=== PATIENT | female | born 1985 | race Caucasian/White ===

== ENCOUNTER → 2016-03-03 | Outpatient (CLI) | payer BC, OTHER ==
[~2016-03-03] MED LIST: OXYC-57 PO; PRENTAB65 PO
[2016-03-03 17:34] LABS: BASO % 0.2 %; BASO ABS # 0.02 K/uL (0-0.2); COMPLETE YES; EOS % 0.4 %; HEMATOCRIT 40.3 % (37-47); IG% 0.1 %; LYMPH % 24.2 %; LYMPH ABS # 2.29 K/uL (1.2-3.4); MEAN CORPUSCULAR HEMOGLOBIN 32.8 pg (25-34); MEAN CORPUSCULAR HGB CONC 34.5 g/dl (32-36); MEAN PLATELET VOLUME 11.1 fL (7.4-10.4); MONO % 4.7 %; NEUT % 70.4 %; PLATELET COUNT 274 K/uL (130-400); RED BLOOD COUNT 4.24 M/uL (4.2-5.4); WHITE BLOOD COUNT 9.45 K/uL (4.8-10.8)
[2016-03-03 17:48] LABS: URINE APPEARANCE CLOUDY (CLEAR); URINE BILIRUBIN NEG (NEG); URINE COLOR YELLOW; URINE EPITHELIAL CELL AUTO >30 /lpf (0-5); URINE NITRITE NEG (NEG); URINE PH 5.5 (4.5-7.5); URINE SPECIFIC GRAVITY 1.019 (1.000-1.030); UROBILINOGEN NEG (NEG)
[2016-03-03 17:57] LABS: MANUAL MICROSCOPIC REQUIRED? NO; REVIEW REQ? NO
[2016-03-08 03:24] LABS: CHLAMYDIA TRACH RNA*** NOT DETECTED (NOT DETECTED); GC (NEIS GONORRHOEAE)RNA** NOT DETECTED (NOT DETECTED)
== END | disposition home or self-care (01) ==
LOC: C.LAB1850 16:13
PROVIDERS: ATTEND Obstetrics & Gynecology
DX: O09.211 Supervision of pregnancy with history of pre-term labor, first trimester (principal)

== ENCOUNTER → 2016-04-04 | Outpatient (CLI) | payer BC, OTHER ==
[~2016-04-04] MED LIST changes: +OPTIRAY 320 IV PRN
--- NOTE | 2016-04-04 16:13 | DIAGNOSTIC IMAGING REPORT ---
CT ANGIOGRAM OF THE CHEST CLINICAL HISTORY: Shortness of breath, hemachromatosis, . COMPARISON STUDY: No previous studies for comparison. TECHNIQUE: Following the IV administration of 90 mL of Optiray-320, CT angiogram of the thorax was performed from the thoracic inlet to the lung bases utilizing the pulmonary embolus protocol. Images are reviewed in the axial, sagittal, and coronal planes. IV contrast was administered without complication. MIP imaging was performed. CT DOSE: 298.21 mGy.cm FINDINGS: No pathologically enlarged axillary mediastinal or hilar lymph nodes were visualized. There was no evidence of thoracic aortic dilatation. There were no pulmonary artery filling defects to indicate acute pulmonary embolism. No pleural effusions are visualized. Dependent groundglass attenuation is felt to be atelectatic. There is no focal pulmonary consolidation. There is a 3 mm right middle lobe pulmonary nodule as visualized in image #[id number]. Given the age of the patient, in the absence of risk factors for malignancy, this finding is of doubtful clinical significance. IMPRESSION: 1. No CT evidence of acute pulmonary embolism 2. No evidence of focal pulmonary consolidation 3. 3 mm right middle lobe pulmonary nodule Electronically signed by: Brandan Crowe M.D. 04/04/2016 4:11 PM Dictated Date/Time: 04/04/2016 4:07 PM
== END | disposition home or self-care (01) ==
LOC: C.CTS 15:31
PROVIDERS: ATTEND Internal Medicine Hematology & Oncology
DX: E83.119 Hemochromatosis, unspecified (principal)

== ENCOUNTER → 2016-04-17 | Outpatient (CLI) | payer BC, OTHER ==
[~2016-04-17] MED LIST changes: -OPTIRAY 320 IV PRN
[2016-04-17 14:02] LABS: GTGD 50 Grams
== END | disposition home or self-care (01) ==
LOC: C.LAB1850 09:52
PROVIDERS: ATTEND Obstetrics & Gynecology
DX: O09.212 Supervision of pregnancy with history of pre-term labor, second trimester (principal); Z3A.00 Weeks of gestation of pregnancy not specified

== ENCOUNTER 2016-06-16 18:14 | Outpatient (CLI) | payer BC, OTHER ==
[~2016-06-16] VITALS: Ht 160 cm; Wt 95.5 kg
[~2016-06-16 18:14] MED LIST changes: -OXYC-57 PO
[2016-06-16 19:49] VITALS: Ht 160 cm; Wt 95.5 kg
[2016-09-04] MEDS ORDERED: OXYC-57 PO (07:22)
== END 2016-06-16 20:00 | disposition home or self-care (01) ==
LOC: C.LD 18:14 → C.OPB 18:14
PROVIDERS: ATTEND Obstetrics & Gynecology
DX: O26.892 Other specified pregnancy related conditions, second trimester (principal); R10.30 Lower abdominal pain, unspecified; Z3A.25 25 weeks gestation of pregnancy

== ENCOUNTER → 2016-07-12 | Outpatient (CLI) | payer BC, OTHER ==
[~2016-07-12] MED LIST changes: +OXYC-57 PO
[2016-07-12 15:03] LABS: HEMATOCRIT 38.9 % (37-47)
[2016-07-12 19:21] LABS: GTGD 50 Grams
== END | disposition home or self-care (01) ==
LOC: C.LAB1850 12:04
PROVIDERS: ATTEND Obstetrics & Gynecology
DX: O09.893 Supervision of other high risk pregnancies, third trimester (principal)

== ENCOUNTER → 2016-07-12 | Outpatient (CLI) | payer BC, OTHER ==
[2016-07-12 15:15] LABS: URINE APPEARANCE CLOUDY (CLEAR); URINE BILIRUBIN NEG (NEG); URINE COLOR DK YELLOW; URINE EPITHELIAL CELL AUTO >30 /lpf (0-5); URINE NITRITE NEG (NEG); URINE PH 6.5 (4.5-7.5); URINE SPECIFIC GRAVITY 1.024 (1.000-1.030); UROBILINOGEN NEG (NEG)
[2016-07-12 15:19] LABS: MANUAL MICROSCOPIC REQUIRED? NO; REVIEW REQ? YES
== END | disposition home or self-care (01) ==
LOC: C.LABSPEC 14:04
PROVIDERS: ATTEND Obstetrics & Gynecology
DX: O09.893 Supervision of other high risk pregnancies, third trimester (principal)

== ENCOUNTER → 2016-09-01 | Outpatient (CLI) | payer BC, OTHER | END | disposition home or self-care (01) | LOC: C.LABSPEC 14:31 | PROVIDERS: ATTEND Obstetrics & Gynecology | DX: O09.213 Supervision of pregnancy with history of pre-term labor, third trimester (principal); Z3A.00 Weeks of gestation of pregnancy not specified ==

== ENCOUNTER 2016-09-02 12:40 | Inpatient (IN) | payer BC, OTHER ==
[~2016-09-02] VITALS: Ht 162.6 cm; Wt 101.4 kg
[~2016-09-02 12:40] MED LIST changes: -OXYC-57 PO
[2016-09-02] MEDS ORDERED: LACTATED RINGER'S 1000ML 1,000 ML IV SCH ×2 (12:42→19:03)
[2016-09-02] MEDS ORDERED: LACTATED RINGER'S 1000ML 1,000 ML IV PRN (12:42)
[2016-09-02] MEDS ORDERED: PENICILLIN G POTASSIUM IV 3 MU in DEXTROSE 5% 100ML 100 ML IV PRN (12:45)
[2016-09-02] MEDS ORDERED: PENICILLIN G POTASSIUM IV 6 MU in DEXTROSE 5% 250ML 250 ML IV ONE (13:00)
[2016-09-02 13:20] VITALS: Ht 162.6 cm; Wt 101.4 kg
[2016-09-02 13:27] LABS: HEMATOCRIT 37.4 % (37-47); MEAN CELL VOLUME 93.7 fL (80-100); MEAN CORPUSCULAR HEMOGLOBIN 30.8 pg (25-34); MEAN CORPUSCULAR HGB CONC 32.9 g/dl (32-36); MEAN PLATELET VOLUME 10.8 fL (7.4-10.4); PLATELET COUNT 281 K/uL (130-400); RED BLOOD COUNT 3.99 M/uL (4.2-5.4); WHITE BLOOD COUNT 8.61 K/uL (4.8-10.8)
[2016-09-02] MEDS ORDERED: LACTATED RINGER'S 1000ML 500 ML IV PRN ×2 (14:56→17:16)
[2016-09-02] MEDS ORDERED: OXYTOCIN 30 UNITS/500ML NSS IV PRN ×2 (15:00→19:15)
[2016-09-02] MEDS ORDERED: BUPIVACAINE 0.25% 30 ML VIAL ONE (16:14)
[2016-09-02] MEDS ORDERED: FENTANYL 2MCG/ML ROPIV 1.25MG/ML 100ML BAG EPI ONE (16:14)
[2016-09-02] MEDS ORDERED: EpHEDrine SULFATE INJ 50 MG/ML AMP ONE (16:14)
[2016-09-02] MEDS ORDERED: FENTANYL CITRATE INJ 50 MCG/1 ML 2 ML VIAL ONE (16:14)
[2016-09-02] MEDS ORDERED: NALOXONE HCL INJ 1 MG in SODIUM CHLORIDE 0.9% 1000ML 1,000 ML IV PRN (17:16)
[2016-09-02] MEDS ORDERED: EpHEDrine SULFATE INJ 50 MG/ML AMP IV PRN (17:30)
[2016-09-02] MEDS ORDERED: NALBUPHINE HCL INJ 10 MG/ML AMP IV PRN (17:30)
[2016-09-02] MEDS ORDERED: FENTANYL 2MCG/ML ROPIV 1.25MG/ML 100ML BAG EPI PRN (17:30)
[2016-09-02] MEDS ORDERED: DiphenhydrAMINE HCL 50 MG/ML VIAL IV PRN (17:30)
[2016-09-02] MEDS ORDERED: NALOXONE HCL INJ 0.4 MG/1 ML VIAL/CARP IV PRN (17:30)
[2016-09-02] MEDS ORDERED: ONDANSETRON INJ 2 MG/ML 2 ML VIAL IV PRN (17:30)
[2016-09-02] MEDS ORDERED: ACETAMINOPHEN 325 MG TAB PO PRN (19:15)
[2016-09-02] MEDS ORDERED: SUPERCREAM 0.870 % 15GM JAR EXT PRN (19:15)
[2016-09-02] MEDS ORDERED: DIPHTHERIA/TETANUS/PERTUSSIS 0.5 ML SYR/VIAL IM. ONE (19:15)
[2016-09-02] MEDS ORDERED: BENZOCAINE 20% AER SPR 82.5 GM CAN EXT PRN (19:15)
[2016-09-02] MEDS ORDERED: HYDROCORTISONE ACETATE 25 MG SUPP PR PRN (19:15)
[2016-09-02] MEDS ORDERED: OXYCODONE/ACETAMINOPHEN 5-325 TAB PO PRN (19:15)
[2016-09-02] MEDS ORDERED: LANOLIN OINT EXT PRN ×2 (19:15)
[2016-09-02] MEDS: DOCUSATE SODIUM 100 MG CAP PO SCH (20:00)
--- NOTE | 2016-09-02 21:19 | Anesthesia Procedure Note ---
Anesthesia Epidural Removal Nt Date & Time Sep 02, 2016 at 21:19 Vital Signs Pain Intensity: 0.0 Notes Mental Status: alert / awake / arousable, participated in evaluation Nausea / Vomiting: adequately controlled Pain: adequately controlled Airway Patency, RR, SpO2: stable & adequate BP & HR: stable & adequate Hydration State: stable & adequate Neuraxial Anesthesia: was administered Anesthetic Complications: no major complications apparent, pt satisfied with anesthetic care Epidural: removed without complications, with tip intact
[2016-09-02 22:20] VITALS: BP 109/68; PULSE 93; TEMP 36.7
[2016-09-03] MEDS: IBUPROFEN 600 MG TAB PO PRN ×3 (03:18→23:22)
[2016-09-03 03:20] VITALS: BP 109/74; PULSE 70; TEMP 36.5
--- NOTE | 2016-09-03 06:00 | DELIVERY SUMMARY ---
DATE OF OPERATION: 09/02/2016 PREOPERATIVE DIAGNOSES: 1. Single ____ intrauterine at 36 and 1/7 weeks. 2. Spontaneous rupture of membranes. 3. Induction of labor. POSTOPERATIVE DIAGNOSES: Same. PROCEDURE: Spontaneous vaginal delivery and repair of second degree lacerations. SURGEON: Leona Valdes MD BID CLERK: None. ESTIMATED BLOOD LOSS: 400 mL. COMPLICATIONS: None. DISPOSITION: Stable, to labor and delivery. DESCRIPTION: Claudia is a 31-year-old G2, P0-1-0-1 who presented at 36 weeks and 1/7 gestational age with a complaint of rupture of membranes and lower abdominal pain. She was found to have a diagnosis of PPROM with unchanged cervix compared to 24 hours prior. Her cervix ultimately did not continue to change and she needed to be induced with Pitocin. She received an epidural for pain management. I was called to the room when the patient was found to be completely dilated with an urge to push. I prepped her for delivery and over several pushes the patient brought the head to ____ and then delivery followed by the shoulders with no difficulty and the remainder of the thereafter. The infant was placed on the maternal abdomen while the cord was doubly clamped and cut by the father of the baby as the placenta delivered spontaneously and was intact with a 3-vessel cord. A second degree perineal laceration was repaired using Vicryl suture in the usual manner. At the completion, ____ was minimal and mother and are in stable condition having tolerated the delivery well. I attest to the content of the Intraoperative Record and any orders documented therein. Any exception s are noted below.
[2016-09-03 06:35] LABS: HEMATOCRIT 30.4 % (37-47)
[2016-09-03 08:25] VITALS: BP 120/76; PULSE 67; TEMP 36.6
[2016-09-03] MEDS: DOCUSATE SODIUM 100 MG CAP PO SCH ×2 (08:26→19:37)
[2016-09-03] MEDS: PRENATAL VITAMIN TAB PO SCH (08:26)
--- NOTE | 2016-09-03 09:28 | Progress Note ---
Subjective Sep 03, 2016. Subjective conversation w/ patient, physical exam Ambulation: ambulating normally Voiding: no voiding problems Passing Gas: Yes Lochia: Moderate Feeding Type: Bottle Feeding Review of Systems Constitutional: No fever, No chills Respiratory: No cough Cardiac: No chest pain Abdomen: No nausea, No vomiting Objective Vital Signs Date Time Temp Pulse Resp B/P (MAP) Pulse Ox O2 Delivery O2 Flow Rate FiO2 09/03/16 03:20 36.5 70 16 109/74 (86) Room Air 09/02/16 22:20 36.7 93 18 109/68 (82) Room Air 09/02/16 22:20 Room Air Physical Exam General Appearance: WELL-APPEARING, NO APPARENT DISTRESS Respiratory/Chest: no respiratory distress, no accessory muscle use Cardiovascular: no edema Abdomen: non tender, soft Fundus: Firm Extremities: no calf tenderness Laboratory Results Last 24 Hours Test 09/02/16 12:52 09/03/16 06:19 White Blood Count 8.61 K/uL Red Blood Count 3.99 M/uL Hemoglobin 12.3 g/dL 10.2 g/dL Hematocrit 37.4 % 30.4 % Mean Corpuscular Volume 93.7 fL Mean Corpuscular Hemoglobin 30.8 pg Mean Corpuscular Hemoglobin Concent 32.9 g/dl RDW Standard Deviation 46.1 fL RDW Coefficient of Variation 13.4 % Platelet Count 281 K/uL Mean Platelet Volume 10.8 fL Assessment and Plan Problem List Medical Problems: (1) Vomiting Status: Acute Post- Day#: 1
[2016-09-03 12:10] VITALS: BP 124/80; PULSE 76; TEMP 36.6
[2016-09-03 15:45] VITALS: BP 107/71; PULSE 69; TEMP 36.7
[2016-09-03 23:25] VITALS: BP 106/62; PULSE 74; TEMP 36.4; O2SAT 97
[2016-09-04] MEDS ORDERED: OXYC-57 PO (07:22)
--- NOTE | 2016-09-04 07:24 | Discharge Instructions ---
Discharge Instructions Date of Service Sep 04, 2016. Admission Reason for Admission: Check Labor Discharge Discharge Diagnosis / Problem: Vaginal delivery Discharge Goals Goal(s): Routine recovery after delivery Activity Recommendations Activity Limitations: per Instructions/Follow-up section . Instructions / Follow-Up Instructions / Follow-Up ACTIVITY RECOMMENDATIONS: * Gradual return to full activity over the next 2-3 weeks. * No lifting - nothing heavier than baby over the next 2-3 weeks. * Do not engage in vigorous exercise, sexual activity or sports until cleared by your physician. * Do not drive or operate any motorized equipment until cleared by your physician. * You may shower/bathe daily. MEDICATIONS: For discomfort or pain, you may use Acetaminophen (Tylenol), Ibuprofen (Advil), or Naproxen (Aleve) following the package directions. For constipation you may use Colace following the package directions. BREAST CARE: If you are not breast feeding: * Wear a supportive bra 24 hours a day for one to two weeks. * Avoid stimulating your breasts and nipples as much as possible during the first few weeks after delivery. * When taking a shower, have the warm water hit your back, not breasts. * When your breasts feel full, apply ice packs. Usually three to four times a day helps ease the discomfort. * Take a mild pain medication (Tylenol / Motrin) when you are uncomfortable. If breast feeding: * Use breast milk to lubricate nipples. Lansinoh cream may be used for sore nipples. You do not need to remove cream prior to breast feeding. If using a different brand of cream, check the label for directions regarding removal of cream prior to nursing. * Wear a supportive bra. * If having problems with breasts or breast feeding, call a programmer analyst consultant or your health care provider. EPISIOTOMY CARE: After delivery, if you have an episiotomy (stitches), the following steps will ease discomfort and aid healing. * For the first 24 hours after delivery, place ice packs next to your episiotomy to help reduce swelling. * After the first 24 hour-period, sitz baths, either portable or in the tub, are suggested. A shower with a shower arm sprayed over the episiotomy may be comforting. * Keisha care should be done after each voiding and bowel movement. Squirt warm water from a plastic bottle over the perineum (region of the body between the anus and urinary opening) and pat dry. * Use Dermoplast to ease discomfort. Shake container. [place] directly over the episiotomy. Place a Tucks on a clean sanitary pad next to your episiotomy. SPECIAL CARE INSTRUCTIONS: When you are discharged from the hospital, it is important for you to follow the instructions listed below: * During the first week at home, you should be able to care for yourself and your baby. In addition, the usual light household activities are encouraged. * Limit your activities to the way you feel. Do not try to clean the house or move furniture. Be sensible. * If you actively engage in sports and have done so up until the time of your delivery, you may resume these activities as soon as you feel able. This may take up to one month or even longer. Use good judgment. * Continue to take your vitamins for at least six weeks after the of your baby. * Your diet need not be limited unless you were on a special diet before your delivery. Breast-feeding mothers need around 2500 calories per day and at least 64-80 ounces of fluid per day (8 to 10 glasses). * You should eat foods from the four major food groups. Crash diets or fad diets are to be avoided. Eating lean meats, fresh fruits and vegetables, low-fat dairy products, high fiber foods and a regular exercise program, will help you get back to your pre- weight without putting your health at risk. * Constipation is sometimes a problem after delivery. Take a mild laxative as needed. If breast feeding, Milk of Magnesia is acceptable to use. You may use a suppository or Fleets enema if no episiotomy. * A daily shower or tub bath is suggested. Be sure to thoroughly and gently dry the perineum. * A bloody vaginal discharge will usually continue until around four weeks post . A small amount of bleeding may continue for as long as six weeks. Vaginal discharge changes from the bright red bleeding after delivery to pink then brownish and finally yellowish-pink before becoming white and disappearing. * Bleeding may increase with activity. Your first period may come in 4-8 weeks. If you are breast feeding, your period may be delayed even longer. * [place] (sex) can begin whenever both you and your partner feel comfortable and do not have any form of genital infection. It is recommended that you wait at least six weeks for internal and external healing to occur. If you have questions, please talk to your health care practitioner. A condom should be used to prevent infection and . * Foreplay, gentle intercourse and lubrication is very important the first several times to prevent pain. A water-based lubricant such as K-Y jelly or Astroglide may be used. * If you have RH negative blood and your baby is RH positive, you will receive RHOGAM by injection prior to discharge. The nurse will give you a card to keep with you that has the date and place that you received RHOGAM after delivery. * During your care, you had a Rubella screen done to check for the presence of rubella antibodies in your blood. If your test was negative, you will receive a Rubella vaccine prior to discharge. This vaccine may cause a fever, soreness at the injection site and flu-like symptoms. If these symptoms persist, notify your health care practitioner. is not advised for one month after a Rubella vaccine. * Verbalizes understanding of car seat law as reviewed with patient nursing. * Car Seat hand-out given and reviewed with patient by nursing. * Shaken baby information reviewed with patient by nursing. Call you doctor if: * Heavy bleeding (saturating several pads an hour) or passing clots the size of your fist. * A fever >101 degrees F (38.3 degrees C) on two occasions four hours apart and /or chills. * Unusual pain in the pelvic or vaginal areas. * "Baby Blues" lasting longer than two weeks. If you have any questions or concerns, call your health care practitioner at . FOLLOW UP VISIT: * Please call the office at to schedule a 6 week examination. It is important you keep this appointment. It is important for you to make arrangements for either yearly or twice yearly check-ups thereafter. Current Hospital Diet Patient's current hospital diet: Regular OB Diet Discharge Diet Recommended Diet: Regular Diet Pending Studies Studies pending at discharge: no Medical Emergencies . Who to Call and When: Medical Emergencies: If at any time you feel your situation is an emergency, please call 911 immediately. . Non-Emergent Contact Non-Emergency issues call your: Primary Care Provider . . "Provider Documentation" section prepared by Leona Valdes. . VTE Core Measure Inpt VTE Proph given/why not?: Treatment not indicated
--- NOTE | 2016-09-04 07:36 | OB/GYN Progress Note ---
BUILDING SPECIALIST Progress Note Date of Service Sep 04, 2016. Subjective conversation w/ patient, physical exam, chart review Ambulation: ambulating normally Voiding: no voiding problems Passing Gas: Yes Diet Tolerance: Regular Diet Lochia: Small Feeding Type: Bottle Feeding Pain: No pain reported Review of Systems Constitutional: No fever Respiratory: No shortness of breath Cardiac: No chest pain Breast: No problem reported Abdomen: No nausea, No vomiting Female : No dysuria Objective Vital Signs Date Time Temp Pulse Resp B/P (MAP) Pulse Ox O2 Delivery O2 Flow Rate FiO2 09/03/16 23:25 Room Air 09/03/16 23:25 36.4 74 16 106/62 (77) 97 Room Air 09/03/16 15:45 Room Air 09/03/16 15:45 36.7 69 20 107/71 (83) 09/03/16 12:10 36.6 76 20 124/80 (95) 09/03/16 08:25 36.6 67 16 120/76 (91) Physical Exam General Appearance: WELL-APPEARING Respiratory/Chest: lungs clear, normal breath sounds, no respiratory distress Cardiovascular: regular rate, rhythm Abdomen: non tender, soft Fundus: Firm Extremities: non-tender, normal inspection, + swelling (1+ pedal edema) Laboratory Results Last Resulted 09/02/16 12:52 09/03/16 06:19 Medications Current Inpatient Medications Medications (Trade) Dose Ordered Sig/Aquiles Route Start Time Stop Time Status Last Admin Dose Admin Lactated Ringer's 500 ml @ 999 mls/hr Q31M PRN IV 09/02/16 14:56 10/02/16 14:55 Lactated Ringer's 1,000 ml @ 125 mls/hr Q8H IV 09/02/16 19:03 10/02/16 19:02 Oxytocin (Pitocin IV) 30 units UD PRN IV 09/02/16 19:15 10/02/16 19:14 Benzocaine (Dermoplast Aero Spr) 1 appln PRN PRN EXT 09/02/16 19:15 10/02/16 19:14 Cocaine HCl (Supercream 0.870% Cr) BID PRN EXT 09/02/16 19:15 09/16/16 19:14 Hydrocortisone Acetate (Anusol Hc Supp) 25 mg BID PRN OK 09/02/16 19:15 10/02/16 19:14 Lanolin (Lanolin Oint) PRN PRN EXT 09/02/16 19:15 10/02/16 19:14 Prenat Multivit/ Managed Care Specialist/Iron/Folic Ac ( Vitamin Tab) 1 tab DAILY PO 09/03/16 08:00 10/03/16 07:59 09/03/16 08:26 1 TAB Ibuprofen (Motrin Tab) 600 mg Q4H PRN PO 09/02/16 19:15 10/02/16 19:14 09/03/16 23:22 600 MG Acetaminophen (Tylenol Tab) 650 mg Q6H PRN PO 09/02/16 19:15 10/02/16 19:14 Oxycodone/ Acetaminophen (Percocet 5-325mg Tab) 1 tab Q4H PRN PO 09/02/16 19:15 09/16/16 19:14 Docusate Sodium (coLACE CAP) 100 mg BID PO 09/02/16 20:00 10/02/16 19:59 09/03/16 19:37 100 MG Assessment and Plan Post- Day Number: 2 Continue Routine Care: 31yo s/p , now PPD #2. - Blood type A positive. GBS unknown. Rubella immune. - Vital signs reviewed and stable. - Pain controlled with ibuprofen - Mild leg swelling. No tenderness on calf palpation. Ambulating well - Bottle feeding - no problems reported - Hemoglobin pre-delivery 12.3, post-delivery 10.2. Having mild bleeding - Pt ready for discharge today Resident Involvement: Resident Care Provided Care Provided: OB Delivery
[2016-09-04 07:50] VITALS: BP 107/71; PULSE 52; TEMP 36.4
[2016-09-04] MEDS: PRENATAL VITAMIN TAB PO SCH (08:08)
[2016-09-04] MEDS: DOCUSATE SODIUM 100 MG CAP PO SCH (08:08)
[2016-09-04 13:10] VITALS: BP_DIAS 71; PULSE 52; TEMP 36.4
== END 2016-09-04 13:10 | disposition home or self-care (01) | DRG 775 ==
LOC: C.LD 12:40 → C.OPB 12:40 → C.LD 12:44 → C.OPB 12:44 → C.OBG 21:52
PROVIDERS: ADMIT Obstetrics & Gynecology; ATTEND Obstetrics & Gynecology
PROC: 10E0XZZ Delivery of Products of Conception, External Approach (ICD-10-PCS; principal; 2016-09-02)
PROC: 0KQM0ZZ Repair Perineum Muscle, Open Approach (ICD-10-PCS; principal; 2016-09-02)
PROC: 3E033VJ Introduction of Other Hormone into Peripheral Vein, Percutaneous Approach (ICD-10-PCS; principal; 2016-09-02)
DX: O42.913 Preterm premature rupture of membranes, unspecified as to length of time between rupture and onset of labor, third trimester (principal); O70.1 Second degree perineal laceration during delivery; O35.2XX0 Maternal care for (suspected) hereditary disease in fetus, not applicable or unspecified; Z37.0 Single live birth; Z3A.36 36 weeks gestation of pregnancy

== ENCOUNTER 2017-02-06 00:53 | Emergency (ER) | payer BC, OTHER ==
[~2017-02-06] VITALS: Ht 157.5 cm; Wt 86.5 kg
[2017-02-06 00:59] VITALS: TEMP 36.5; Ht 157.5 cm; Wt 86.5 kg
[2017-02-06] MEDS ORDERED: DEXAMETHASONE 4 MG TAB ONE (01:11)
[2017-02-06] MEDS ORDERED: DEXAMETHASONE 1 MG TAB PO ONE (01:15)
[2017-02-06] MEDS ORDERED: RANITIDINE HCL 150 MG TAB PO ONE (01:15)
[2017-02-06] MEDS ORDERED: LXT PO (01:27)
[2017-02-06] MEDS ORDERED: DIPH1TAB87 PO (01:54)
[2017-02-06] MEDS ORDERED: RANI150T3 PO (01:54)
--- NOTE | 2017-02-06 01:56 | EMERGENCY ROOM VISIT NOTE ---
History Report prepared by Jacqueline: Radha Drummond Under the Supervision of: Dr. Mack Gomez M.D. First contact with patient: 01:02 Chief Complaint: ALLERGIC REACTION Stated Complaint: WELTS History of Present Illness The patient is a 31 year old female who presents to the Emergency Room with complaints of a worsening allergic reaction starting an hour ago. The patient states that she woke up and noticed a lump on her back. She reports that it started getting bigger and itchy welts were appearing all over her body. The patient complains of dizziness. The patient denies this ever happening before, taking anything for her symptoms, new detergents, new foods, and new medication. She notes that she took a laxative today. Source of History: patient Onset: an hour ago Position: other (global) Quality: other (itchy) Timing: worsening Note: The patient complains of dizziness. Review of Systems See HPI for pertinent positives and negatives. A total of ten systems were reviewed and were otherwise negative. Past Medical & Surgical Medical Problems: (1) 25 weeks gestation of (2) Abdominal pain complicating (3) Complicated (4) GERD (gastroesophageal reflux disease) (5) Hemochromatosis (6) hemorchromitosis (7) Hodgkin's disease (8) Ovarian cyst, right (9) over reactive bladder (10) Premature rupture of membranes (11) premature rupture of membranes (PPROM) delivered, current hospitalization (12) Threatened miscarriage (13) Threatened miscarriage (14) Urethritis (15) Vaginitis Family History Cancer Diabetes mellitus FHx: seizures Hypertension Social History Smoking Status: Never Smoker Alcohol Use: occasionally Marital Status: Housing Status: lives with significant other Occupation Status: employed Current/Historical Medications Scheduled Prednisone (Prednisone), 3 TAB PO DAILY Ranitidine Hcl (Zantac), 150 MG PO BID Scheduled PRN Diphenhydramine Hcl (Benadryl Allergy), 1 TAB PO QID PRN for Itching Laxative (Laxative), Unknown Dose PO DIRECTED PRN for Constipation Allergies Coded Allergies: No Known Allergies (Unverified , 02/06/17) Physical Exam Vital Signs Date Time Temp Pulse Resp B/P (MAP) Pulse Ox O2 Delivery O2 Flow Rate FiO2 02/06/17 02:16 78 20 128/72 98 02/06/17 01:07 98 Room Air 02/06/17 00:59 36.5 111 20 127/84 100 Room Air Physical Exam GENERAL: Awake, alert, anxious appearing, in no distress HENT: Normocephalic, atraumatic. Oropharynx unremarkable. No oropharyngeal involvement. EYES: Normal conjunctiva. Sclera non-icteric. NECK: Supple. No nuchal rigidity. FROM. No JVD. RESPIRATORY: Clear to auscultation. CARDIAC: Regular rate, normal rhythm. Extremities warm and well perfused. Pulses equal. ABDOMEN: Soft, non-distended. No tenderness to palpation. No rebound or guarding. No masses. RECTAL: Deferred. MUSCULOSKELETAL: Chest examination reveals no tenderness. The back is symmetrical on inspection without obvious abnormality. There is no CVA tenderness to palpation. No joint edema. LOWER EXTREMITIES: Calves are equal size bilaterally and non-tender. No edema. No discoloration. NEURO: Normal sensorium. No sensory or motor deficits noted. SKIN: No jaundice noted. Scattered, raised, blanchable areas of erythema on her arms, torso, and back. Medical Decision & Procedures Medications Administered Medications (Trade) Dose Ordered Sig/Aquiles Route Start Time Stop Time Status Last Admin Dose Admin Dexamethasone (Decadron Tab) 10 mg NOW ONCE PO 02/06/17 01:15 02/06/17 01:16 DC 02/06/17 01:14 2 MG Diphenhydramine HCl (Benadryl Cap) 50 mg NOW ONCE PO 02/06/17 01:15 02/06/17 01:16 DC 02/06/17 01:13 50 MG Ranitidine HCl (zANTac TAB) 150 mg NOW ONCE PO 02/06/17 01:15 02/06/17 01:16 DC 02/06/17 01:13 150 MG Dexamethasone (Decadron Tab) 8 mg STK-MED ONCE .ROUTE 02/06/17 01:11 02/06/17 01:12 DC 02/06/17 01:14 8 MG ED Course 0103: The patient was evaluated in room A3. A complete history and physical exam was performed. 0203: I reevaluated the patient and she is feeling better. Discussed results and discharge instructions: She verbalized understanding and agreement. The patient is ready for discharge. Medical Decision I reviewed the patient's past medical history, medications, and the nursing notes as described above. Differential diagnoses include allergic reaction, atopic reaction. The patient is a 31-year-old woman with a past medical history of hemochromatosis who presents to emergency Department with acute onset of hives in her extremities and torso per hpi. Patient denies any symptoms of shortness of breath, nausea vomiting, abdominal pain or other symptoms that would suggest episode is related to her hemochromatosis therefore no indication for labs at this time. On arrival the patient is anxious appearing but in no acute distress , afebrile stable vital signs. Family patient does have scattered areas of raised erythema that is blanchable consistent with hives. No oral pharyngeal involvement. Clear to auscultation bilaterally. She was given Benadryl, Zantac , dexamethasone with good effect and resolution of symptoms. Findings and plan for follow-up reviewed with patient. Patient agreeable and d/c'd per discharge instructions. Medication Reconcilliation Current Medication List: was personally reviewed by me Blood Pressure Screening Patient's blood pressure: Normal blood pressure Blood pressure disposition: Did not require urgent referral Impression Primary Impression: Allergic reaction Scribe Attestation The scribe's documentation has been prepared under my direction and personally reviewed by me in its entirety. I confirm that the note above accurately reflects all work, treatment, procedures, and medical decision making performed by me. Departure Information Dispostion Home / Self-Care Prescriptions Prednisone (Prednisone) 20 Mg Tab 3 TAB PO DAILY for 5 Days, #15 TAB FOR 4 DAYS Prov: Mack Gomez M.D. 02/06/17 Diphenhydramine Hcl (BENADRYL ALLERGY) 25 Mg Tab 1 TAB PO QID Y for Itching, #14 TABS Prov: Mack Gomez M.D. 02/06/17 Ranitidine Hcl (ZANTAC) 150 Mg Tab 150 MG PO BID for 7 Days, #14 TAB Prov: Mack Gomez M.D. 02/06/17 Referrals Arian Salazar M.D. (PCP) Forms HOME CARE DOCUMENTATION FORM, IMPORTANT VISIT INFORMATION Patient Instructions ED Allergic Reaction General Other, ED Hives , [facility] Additional Instructions Please follow up with your primary care physician tomorrow for re-evaluation. You likely had and an allergic reaction to an unidentified environmental exposure. Otherwise, your exam did not show signs of an emergent condition at this time. Benadryl and Zantac as directed. If symptoms return then you may also take prednisone as directed. Return to the emergency department for worsening symptoms as described in the accompanying instructions.
[2017-02-06] MEDS ORDERED: PRED20TA PO (02:07)
[2017-02-06 02:16] VITALS: BP 128/72; PULSE 78; O2SAT 98
[2017-08-04] MEDS ORDERED: LEVO50TA6 PO (13:25)
== END 2017-02-06 02:18 | disposition home or self-care (01) ==
LOC: C.EDB 00:54 → C.EDA 02:18
DX: T78.40XA Allergy, unspecified, initial encounter (principal); X58.XXXA Exposure to other specified factors, initial encounter; K21.9 Gastro-esophageal reflux disease without esophagitis; N83.201 Unspecified ovarian cyst, right side; Z85.71 Personal history of Hodgkin lymphoma; Z79.899 Other long term (current) drug therapy; Z80.9 Family history of malignant neoplasm, unspecified; Z83.3 Family history of diabetes mellitus; Z82.49 Family history of ischemic heart disease and other diseases of the circulatory system; Z82.0 Family history of epilepsy and other diseases of the nervous system

== ENCOUNTER → 2017-06-13 | Outpatient (CLI) | payer OTHER ==
[~2017-06-13] MED LIST changes: +DIPH1TAB87 PO; +LXT PO; -PRENTAB65 PO
== END | disposition home or self-care (01) ==
LOC: C.LAB1850 12:19
PROVIDERS: ATTEND Physician Assistant
DX: N91.2 Amenorrhea, unspecified (principal)

== ENCOUNTER → 2017-06-26 | Outpatient (CLI) | payer OTHER | END | disposition home or self-care (01) | LOC: C.LABSPEC 13:25 | PROVIDERS: ATTEND Obstetrics & Gynecology | DX: Z34.81 Encounter for supervision of other normal pregnancy, first trimester (principal) ==

== ENCOUNTER → 2017-09-07 | Outpatient (CLI) | payer OTHER ==
[~2017-09-07] MED LIST changes: -DIPH1TAB87 PO; +LEVO50TA6 PO; -LXT PO
== END | disposition home or self-care (01) ==
LOC: C.LAB1850 16:09
PROVIDERS: ATTEND Internal Medicine Endocrinology, Diabetes & Metabolism
DX: E03.9 Hypothyroidism, unspecified (principal)

== ENCOUNTER 2018-02-05 20:04 | Inpatient (IN) ==
[2018-02-05] MEDS ORDERED: LACTATED RINGER'S 1,000 ML IV PRN (20:36)
[2018-02-05] MEDS ORDERED: LACTATED RINGER'S 1,000 ML IV SCH (20:45)
[2018-02-05 21:04] LABS: Hematocrit (blood only) 38.6 % (37-47); Mean Corpuscular Volume 93.7 fL (80-100); Mean Platelet Volume 10.9 fL (7.4-10.4); Platelet Count 307 K/uL (130-400); RDW Coefficient of Variation 13.5 % (11.5-14.5); RDW Standard Deviation 46.3 fL (36.4-46.3); Red Blood Count 4.12 M/uL (4.2-5.4); White Blood Count 12.65 K/uL (4.8-10.8)
[2018-02-05 21:22] LABS: Mean Corpuscular Hgb Conc 33.7 g/dL (32-36)
[2018-02-05] MEDS ORDERED: ACETAMINOPHEN 325 MG TAB PO PRN (21:41)
[2018-02-05] MEDS ORDERED: HYDROCORTISONE ACETATE 25 MG SUPP PR PRN (21:41)
[2018-02-05] MEDS ORDERED: SUPERCREAM 0.870% 15 GM JAR EXT PRN (21:41)
[2018-02-05] MEDS ORDERED: DIPHTHERIA/TETANUS/PERTUSSIS 0.5 ML SYR/VIAL IM ONE (21:41)
[2018-02-05] MEDS ORDERED: BENZOCAINE 20% AER SPR 82.5 GM CAN EXT PRN (21:41)
[2018-02-05] MEDS ORDERED: OXYTOCIN 30 UNITS/500 ML BAG IV PRN (21:41)
[2018-02-05] MEDS ORDERED: IBUPROFEN 600 MG TAB PO ONE (21:49)
[2018-02-06] MEDS: IBUPROFEN 600 MG TAB PO PRN ×3 (04:17→20:18)
--- NOTE | 2018-02-06 06:50 | Obstetrical Progress Note ---
Date of Service <Cristhian Nielsen DO - Last Filed: 02/06/18 06:50> February 06, 2018 Assessment & Plan <Cristhian Nielsen DO - Last Filed: 02/06/18 06:50> (1) Spontaneous vaginal delivery: continue routine post- care Subjective <Cristhian Nielsen DO - Last Filed: 02/06/18 06:50> Ambulation: ambulating normally Voiding: no voiding problems Diet Tolerance:: regular diet Lochia:: Small Feeding Type:: bottle feeding Claudia is doing well this morning, no acute complaints, no fever, chills, shortness of breath, chest pain, nausea, vomiting. Physical Exam <Cristhian Nielsen DO - Last Filed: 02/06/18 06:50> Vital Signs (Past 24 Hours) Last Vital Signs Temp 36.5 C 02/06/18 04:15 Pulse 68 02/06/18 04:15 Resp 18 02/06/18 04:15 BP 112/64 02/06/18 04:15 Constitutional WD/WN, vitals as above cooperative Eyes + anicteric sclerae Neck normal visual inspection Respiratory normal respiratory effort, lungs clear to auscultation Cardiovascular Rate/Rhythm: regular rate and regular rhythm Heart Sounds: normal S1 and normal S2 Gastrointestinal (Abdomen) fundus firm 2cm below umbilicus Skin no rashes, warm and dry Neurologic moves all extremities and awake Psychiatric A+Ox3, euthymic affect Results & Data <Cristhian Nielsen DO - Last Filed: 02/06/18 06:50> Laboratory Results Laboratory Results - last 24 hr 02/05/18 20:55 WBC 12.65 H RBC 4.12 L Hgb 13.0 Hct 38.6 MCV 93.7 MCH 31.6 MCHC 33.7 RDW Std Deviation 46.3 RDW Coeff of Nena 13.5 Plt Count 307 MPV 10.9 H Medications Administered Benzocaine (Dermoplast Pain Relieving [place]) 1 appln EXT PRN PRN PRN Reason: Perineal Discomfort Stop: 03/07/18 21:40 Last Admin: 02/06/18 04:16 Dose: 1 appln Lactated Ringer's (Lr) 1,000 mls @ 999 mls/hr IV .Q1H1M PRN PRN Reason: (Pre-Anesthesia) Stop: 03/07/18 20:35 Last Admin: 02/05/18 20:54 Dose: 999 mls/hr Oxytocin (Pitocin) 30 units in 500 mls @ 333.333 mls/hr IV .Q1H30M PRN; Protocol PRN Reason: BLEEDING CONTROL Stop: 03/07/18 21:40 Last Admin: 02/05/18 21:25 Dose: 59.94 units/hr, 999 mls/hr Ibuprofen (Motrin) 600 mg PO Q4H PRN PRN Reason: Pain/MURILLO/Cramping/Fever Stop: 03/07/18 21:40 Last Admin: 02/06/18 04:17 Dose: 600 mg <Viraj El MD - Last Filed: 02/06/18 08:13> Co-Signing Physician Notes Patient seen and evaluated and agree with the above findings, assessment and plan.
[2018-02-06] MEDS ORDERED: PRENATAL VITAMIN 1 TAB PO SCH (09:00)
[2018-02-06] MEDS: DOCUSATE SODIUM 100 MG CAP PO SCH ×2 (09:41→20:18)
[2018-02-06] MEDS: LEVOTHYROXINE SODIUM 75 MCG TABLET PO SCH (11:42)
[2018-02-06] MEDS: MULTIVITAMIN TAB PO SCH (13:01)
[2018-02-06] MEDS: FOLIC ACID 1 MG TAB PO SCH (13:02)
[2018-02-06] MEDS ORDERED: BISACODYL 5 MG TABEC PO SCH (20:00)
--- NOTE | 2018-02-07 06:42 | Obstetrical Progress Note ---
Date of Service <Cristhian Nielsen DO - Last Filed: 02/07/18 06:42> February 07, 2018 Assessment & Plan <Cristhian Nielsen DO - Last Filed: 02/07/18 06:42> (1) Spontaneous vaginal delivery: continue routine post- care Subjective <Cristhian Nielsen DO - Last Filed: 02/07/18 06:42> Ambulation: ambulating normally Voiding: no voiding problems Diet Tolerance:: regular diet Lochia:: Small Feeding Type:: bottle feeding Claudia is doing well this morning, no acute events overnight, denies chest pain , shortness of breath, fever, chills, nausea, vomiting. Physical Exam <Cristhian Nielsen DO - Last Filed: 02/07/18 06:42> Vital Signs (Past 24 Hours) Last Vital Signs Temp 36.5 C 02/07/18 00:00 Pulse 70 02/07/18 00:00 Resp 18 02/07/18 00:00 BP 121/75 02/07/18 00:00 Pulse Ox 97 02/06/18 12:56 Constitutional WD/WN, vitals as above cooperative Eyes + anicteric sclerae Neck normal visual inspection Respiratory normal respiratory effort, lungs clear to auscultation Cardiovascular Rate/Rhythm: regular rate and regular rhythm Heart Sounds: normal S1 and normal S2 Skin no rashes, warm and dry Neurologic moves all extremities and awake Psychiatric A+Ox3, euthymic affect Results & Data <Cristhian Nielsen DO - Last Filed: 02/07/18 06:42> Medications Administered Benzocaine (Dermoplast Pain Relieving [place]) 1 appln EXT PRN PRN PRN Reason: Perineal Discomfort Stop: 03/07/18 21:40 Last Admin: 02/06/18 04:16 Dose: 1 appln Docusate Sodium (Colace) 100 mg PO BID [facility] Stop: 03/08/18 08:59 Last Admin: 02/06/18 20:18 Dose: 100 mg Admin: 02/06/18 09:41 Dose: 100 mg Folic Acid (Folvite) 1 mg PO QAM [facility] Stop: 03/08/18 10:29 Last Admin: 02/06/18 13:02 Dose: Not Given Lactated Ringer's (Lr) 1,000 mls @ 999 mls/hr IV .Q1H1M PRN PRN Reason: (Pre-Anesthesia) Stop: 03/07/18 20:35 Last Admin: 02/05/18 20:54 Dose: 999 mls/hr Oxytocin (Pitocin) 30 units in 500 mls @ 333.333 mls/hr IV .Q1H30M PRN; Protocol PRN Reason: BLEEDING CONTROL Stop: 03/07/18 21:40 Last Admin: 02/05/18 21:25 Dose: 59.94 units/hr, 999 mls/hr Ibuprofen (Motrin) 600 mg PO Q4H PRN PRN Reason: Pain/MURILLO/Cramping/Fever Stop: 03/07/18 21:40 Last Admin: 02/06/18 20:18 Dose: 600 mg Admin: 02/06/18 13:30 Dose: 600 mg Admin: 02/06/18 04:17 Dose: 600 mg Levothyroxine Sodium (Synthroid) 75 mcg PO DAILYBB [facility] Stop: 03/08/18 10:14 Last Admin: 02/06/18 11:42 Dose: 75 mcg Multivitamins (Multivitamin) 1 tab PO QAM [facility] Stop: 03/08/18 10:29 Last Admin: 02/06/18 13:01 Dose: Not Given <Tim Greene MD, FACOG - Last Filed: 02/07/18 07:29> Co-Signing Physician Notes Resident Physician Supervision Note: I interviewed and examined the patient. Discussed with Dr. Moncada and agree with findings and plan as documented in the note. Any exceptions or clarifications are listed here: [None] Documented By: Tim Greene MD, FACOG
[2018-02-07] MEDS: LEVOTHYROXINE SODIUM 75 MCG TABLET PO SCH (07:14)
[2018-02-07] MEDS: FOLIC ACID 1 MG TAB PO SCH (08:52)
[2018-02-07] MEDS: DOCUSATE SODIUM 100 MG CAP PO SCH (08:52)
[2018-02-07] MEDS: MULTIVITAMIN TAB PO SCH (08:52)
[2018-02-07] MEDS ORDERED: BISACODYL 10 MG SUPP PR PRN (09:00)
[2018-02-07 09:28] VITALS: BP 105/59; PULSE 64; TEMP 98.2; O2SAT 98
--- NOTE | 2018-02-15 16:59 | Delivery Summary ---
DATE OF OPERATION: 02/05/2018 PROCEDURE: Normal spontaneous vaginal delivery. SURGEON: Viraj El MD. PREOPERATIVE DIAGNOSES: 1. Single intrauterine at 37 weeks 4 days gestational age. 2. Labor. 3. History of delivery. POSTOPERATIVE DIAGNOSES: 1. Single intrauterine at 37 weeks 4 days gestational age, delivered. 2. Labor. 3. History of delivery. ESTIMATED BLOOD LOSS: 100 mL. DRAINS: None. FLUIDS: Continuous lactated ringer. URINE OUTPUT: Not measured. CONDITION: Stable. FINDINGS: There was noted to be a viable with Apgars of 8 and 9 at 1 and 5 minutes respectively, weight pending. INDICATIONS: Ms. Conner is a 32-year-old G3, P1-1-0-2, admitted on 02/05/2018 in labor. The patient was initially found to be 4 cm dilated, 80% effaced, -1 station. She progressed in labor without augmentation to 6 cm dilated, 90% effaced, 0 station. She then underwent artificial rupture of membranes for clear fluid. She continued to progress in labor without further augmentation and progressed to complete, complete, +2. DESCRIPTION OF PROCEDURE: Patient progressed to 10 cm dilated, 100% effaced, +2 station, pushed over intact perineum with epidural anesthesia, and delivered a viable with weight and Apgars as above. Head of the delivered in CHRIS position, restituted in left transverse, no nuchal cord was present. Body and shoulders quickly followed. was delivered to maternal abdomen and was noted to be vigorous soon after delivery. A 1 minute delayed cord clamping was initiated after which the cord was doubly clamped and cut. was then left on maternal abdomen. Attention was then turned to the perineum, cervix, and vagina for inspection, and there were noted to be no significant lacerations. Attention was then turned to delivery of the placenta, delivered intact, 3 vessel cord, with gentle cord traction. Needle, sponge, and instrument counts were correct at the completion of the case. Both mother and were stable in the immediate period. I attest to the content of the Intraoperative Record and any orders documented therein. Any exception s are noted below.
== END 2018-02-07 12:25 | disposition home or self-care (01) | DRG 807 ==
LOC: OPB 20:04 → 4S1 20:05 → 4S2 02-06 00:02

== ENCOUNTER 2021-07-31 09:20 | Inpatient (IN) ==
[2021-07-31] MEDS ORDERED: fentaNYL 2MCG/ML ROPIVACAINE 1.25MG/ML 100 ML BAG EPI ONE (10:10)
[2021-07-31] MEDS ORDERED: ePHEDrine sulfate 50 MG/ML AMP ONE (10:10)
[2021-07-31] MEDS ORDERED: BUPIVACAINE 0.25% 30 ML VIAL ONE (10:10)
[2021-07-31] MEDS ORDERED: fentaNYL citrate 100 MCG/2 ML VIAL ONE (10:10)
[2021-07-31] MEDS: LACTATED RINGER'S 1,000 ML IV PRN ×2 (10:10→11:04)
--- NOTE | 2021-07-31 10:17 | History & Physical Report ---
Date of Service July 31, 2021 Assessment & Plan (1) SROM (spontaneous rupture of membranes): (2) Active labor: Plan: 35 y/o at 39 5/7 wga presents after srom in [place] VSS Fetus cat 1 Labor - expectant management GBS neg epidural PRN History of Present Illness Chief Complaint: Leaking, contractions Primary Care Provider: NO PCP 35 y/o at 39 57 wga presents w/ c/o LOF, contractions that began at the same time. 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 Hx: G1 2016 at 32 wks, PPROM G2 2017 at 36 wks G3 2019 at 37 wks G4 current 12/2019 neg cotest denies hx STIs Allergies Allergy/AdvReac Type Severity Reaction Status Date / Time Iodinated Contrast Media Allergy Mild HIVES/ITCHI Verified 07/31/21 09:44 NG Home Medications Medication Instructions Recorded Confirmed Type ergocalciferol (vitamin D2) 1,250 50,000 unit PO WEEKLY #8 cap 01/26/20 07/31/21 Rx mcg (50,000 unit) capsule famotidine 40 mg tablet (Pepcid) 40 mg PO DAILY PRN 09/25/20 07/31/21 History prenat.vits,javier,cru-lvfe-[id number] 1 tab PO DAILY 12/15/20 07/31/21 History levothyroxine 88 mcg tablet 88 mcg PO DAILY 30 Days #30 tab 07/18/21 07/31/21 Rx Patient History Medical History (Updated 07/31/21 @ 10:25 by Kemi Jung MD) GERD (gastroesophageal reflux disease) History of chicken pox History of hemochromatosis PHLEBOTOMY DONE WHEN REQUIRED Hypothyroidism Infarction of spleen FOLLOWED BY DR. ORTEZ Left upper quadrant abdominal pain Restless leg syndrome Splenunculi Tinnitus, bilateral Surgical History History of esophagogastroduodenoscopy (EGD) 05/08/13 S/P colonoscopy [facility] [facility] teeth removed Family History Grandmother (Maternal) Family history of diabetes mellitus Breast cancer Hypertension Sister Diabetes Family history of diabetes mellitus Grandmother (Maternal) No problems noted. Mother Iron deficiency Grandmother Kidney stones Other No family history of adverse response to anesthesia Denies family history of Ovarian cancer Colorectal cancer Uterine cancer Social History Smoking Status: Never smoker Second Hand Exposure: Yes ( A CHILD); Hx Alcohol Use: No Hx Substance Use: No Preferred Language: Polish Communication Ability: Effective Visual Impairment: No Limitations Hearing Ability: Normal Thread Twister Required: No Beliefs That Will Affect Care: None marital status: marital status details: fob not involved Current Living Situation: Alone Current Living Situation Comment: lives with her kids current occupational status: employed 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 How many Children do You have: 3 Other Information That Helps Us Care for You: No Feels Safe at Home: Yes Safety Concerns: Feels Safe At This Time caffeine: No Dental Care, Regularly: Yes Physical Activity Frequency: 3-4 Times per Week Seatbelt Use: always Sunscreen Use: Yes Assistive Devices: None Physical Exam Genitourinary: OB Exam Abdomen: + estimated weight (7-8) OB Exam Monitor Tracing: + external FHT monitor used, + external uterine monitor used (q5) and + category I (130/mod/+accel/-decel) /-2 by nursing, amnisure positive Results & Data ([facility]) Vital Signs (Past 12 Hours) Vital Signs Temp Pulse Resp BP 07/31/21 09:30 99.0 F 85 20 131/87 Laboratory Results OB Labs: Blood Type A Positive 12/23/20 Antibody Screen NEGATIVE 12/23/20 Hemoglobin 12.2 g/dL (12.0-16.0) 05/09/21 Hematocrit 35.6 % (37-47) L 05/09/21 Mean Corpuscular Volume 100.2 fL (80-100) H 12/23/20 Platelet Count 269 K/uL (130-400) 12/23/20 Rubella IgG Antibody Immune (Immune) 12/23/20 Rapid Plasma Reagin Nonreactive (Nonreactive) 12/23/20 Hepatitis B Surface Antigen Neg (Neg) 12/23/20 HIV (1&2) Ab and P24 Ag, 4th Gener Neg (Neg) 12/23/20 Glucose 1 Hour 50 gm Load 89 mg/dl (70-130) 05/09/21 OB Optional Labs: Chlamydia trachomatis RNA NOT DETECTED (NOT DETECTED) 12/23/20 Neisseria gonorrhoeae RNA NOT DETECTED (NOT DETECTED) 12/23/20 Thyroid Stimulating Hormone (TSH) 0.315 uIu/ml (0.300-4.500) 06/22/21 Labs Reviewed: low risk panorama--akh gbs neg Code Status & VTE Plan VTE Prophylaxis Plan VTE Prophylaxis will be ordered: No Coding Level of Care Code None Diagnoses SROM (spontaneous rupture of membranes) Active labor
[2021-07-31 10:19] LABS: Hematocrit (blood only) 35.8 % (37-47); Mean Corpuscular Hemoglobin 30.9 pg (25-34); Mean Corpuscular Hgb Conc 33.5 g/dL (32-36); Mean Corpuscular Volume 92.3 fL (80-100); Mean Platelet Volume 10.5 fL (7.4-10.4); Platelet Count 314 K/uL (130-400); RDW Coefficient of Variation 14.1 % (11.5-14.5); RDW Standard Deviation 47.5 fL (36.4-46.3); Red Blood Count 3.88 M/uL (4.2-5.4); White Blood Count 9.38 K/uL (4.8-10.8)
--- NOTE | 2021-07-31 10:31 | Anesthesiology Consultation ---
Date of Service July 31, 2021 Assessment & Plan Chart Review Chart Review: Acceptable Risk for Surgery and Patient NOT seen in Pre Admission Testing Consults Requested none ASA ASA2 Proposed Anesthesia Anesthesia Type: Labor Epidural and CSE History Height/Weight Height: 5 ft 2 in Weight: 90.265 kg Allergies Allergy/AdvReac Type Severity Reaction Status Date / Time Iodinated Contrast Media Allergy Mild HIVES/ITCHI Verified 07/31/21 09:44 NG Medications Home Medications Medication Instructions Recorded Confirmed Last Taken ergocalciferol (vitamin D2) 1,250 50,000 unit PO WEEKLY #8 cap 01/26/20 07/31/21 07/27/21 07:00 mcg (50,000 unit) capsule famotidine 40 mg tablet (Pepcid) 40 mg PO DAILY PRN 09/25/20 07/31/21 Unknown prenat.vits,javier,[id number] 1 tab PO DAILY 12/15/20 07/31/21 07/30/21 07:00 levothyroxine 88 mcg tablet 88 mcg PO DAILY 30 Days #30 tab 07/18/21 07/31/21 07/30/21 07:00 Active Medications Generic Name Dose Route Start Last Admin Trade Name Freq PRN Reason Stop Dose Admin Lactated Ringer's 1,000 mls @ 125 mls/hr 07/31/21 09:55 07/31/21 10:10 Lr IV 08/02/21 09:54 125 mls/hr .Q8H PRN Administration L&D Protocol Protocol Past Medical History Medical History GERD (gastroesophageal reflux disease) History of chicken pox History of hemochromatosis PHLEBOTOMY DONE WHEN REQUIRED Hypothyroidism Infarction of spleen FOLLOWED BY DR. ORTEZ Left upper quadrant abdominal pain Restless leg syndrome Splenunculi Tinnitus, bilateral Exercise / Class Metabolic Activity II 4-5 Yardwork/Stairs/Walk up hill Past Family History Family History Grandmother (Maternal) Family history of diabetes mellitus Breast cancer Hypertension Sister Diabetes Family history of diabetes mellitus Grandmother (Maternal) No problems noted. Mother Iron deficiency Grandmother Kidney stones Other No family history of adverse response to anesthesia Denies family history of Ovarian cancer Colorectal cancer Uterine cancer Past Surgical History Surgical History History of esophagogastroduodenoscopy (EGD) 05/08/13 S/P colonoscopy [place] teeth removed Past Anesthesia History No Hx of Anesthesia Complications and No Family Hx of Anesthesia Complications History of PONV No Hx of PONV and No Hx of Motion Sickness Social History Smoking Status: Never smoker tobacco type: cigarettes Hx Alcohol Use: No Hx Substance Use: No substance use type: does not use Physical Exam Vital Signs Last Vital Signs Temp 37.2 C 07/31/21 09:30 Pulse 80 07/31/21 10:27 Resp 20 07/31/21 09:30 BP 131/84 07/31/21 10:26 Pulse Ox 100 07/31/21 10:27 Testing Laboratory Results 07/31/21 10:04
[2021-07-31] MEDS ORDERED: PROMETHAZINE HCL 25 MG in SODIUM CHLORIDE 0.9% 50 ML IV PRN (11:02)
[2021-07-31] MEDS ORDERED: diphenhydrAMINE 50 MG/ML VIAL IV PRN (11:02)
[2021-07-31] MEDS ORDERED: ePHEDrine sulfate 50 MG/ML AMP IV PRN (11:02)
[2021-07-31] MEDS ORDERED: NALOXONE HCL 0.4 MG/1 ML VIAL/CARP IV PRN (11:02)
[2021-07-31] MEDS ORDERED: NALBUPHINE HCL INJ 10 MG/ML AMP IV PRN (11:02)
[2021-07-31] MEDS ORDERED: NALOXONE HCL 1 MG in SODIUM CHLORIDE 0.9% 1000ML 1,000 ML IV PRN (11:02)
[2021-07-31] MEDS ORDERED: ONDANSETRON INJ 2 MG/ML 2 ML VIAL IV PRN (11:02)
[2021-07-31] MEDS ORDERED: fentaNYL 2MCG/ML ROPIVACAINE 1.25MG/ML 100 ML BAG EPI PRN (11:02)
[2021-07-31] MEDS: OXYTOCIN 30 UNITS/500 ML BAG IV PRN ×2 (14:58→15:29)
--- NOTE | 2021-07-31 15:03 | Delivery Summary ---
Vaginal Delivery Summary Date of Service July 31, 2021 Vaginal Delivery Summary DIAGNOSES: 1. Cobos intrauterine at 39w5d gestation. 2. Spontaneous onset of labor. 3. Group B Streptococcus Neg. PROCEDURE: Spontaneous vaginal delivery without laceration. SURGEON: Leona Valdes MD. PATTERN GENERATOR OPERATOR: None. ESTIMATED BLOOD LOSS: 300 mL. COMPLICATIONS: None. PLACENTA: Spontaneous and intact with a 3-vessel cord. DISPOSITION: Stable to labor and delivery. DESCRIPTION: The patient pushed well and brought the head to in DOA position. The infant's head was allowed to deliver with contraction force and no further active pushing, with the perineum protected during this time. There was no nuchal cord. The left shoulder was anterior. The shoulders and body delivered without any difficulty, and the infant was placed on the maternal abdomen. It was vigorous and moving all extremities, and making respiratory efforts. The cord was doubly clamped by the MD and then cut by the FOB. The placenta delivered spontaneously and was noted to be intact and with a 3VC. The cervix, vagina and perineum were examined and were found to be without defect requiring repair. The fundus was firm and lochia minimal immediately after delivery. [facility] Vaginal Delivery Charge Vaginal Delivery Codes: 32426 global code for the antepartum, delivery, and post-
[2021-07-31] MEDS ORDERED: ACETAMINOPHEN 325 MG TAB PO PRN (15:18)
[2021-07-31] MEDS ORDERED: FAMOTIDINE 40 MG TABLET PO PRN (15:18)
[2021-07-31] MEDS ORDERED: BENZOCAINE 20% AER SPR 82.5 GM CAN EXT PRN (15:18)
[2021-07-31] MEDS ORDERED: oxyCODONE/ACETAMINOPHEN 5mg/325mg TAB PO PRN (15:18)
[2021-07-31] MEDS ORDERED: HYDROCORTISONE ACETATE 25 MG SUPP PR PRN (15:18)
[2021-07-31] MEDS ORDERED: DIPHTHERIA/TETANUS/PERTUSSIS 0.5 ML SYR/VIAL IM ONE (15:18)
--- NOTE | 2021-07-31 15:43 | Anesthesia Procedure Note ---
Date of Service July 31, 2021 Anesthesia Post Epidural Note Vital Signs Vital Signs: Temp Pulse Resp BP Pulse Ox 37.1 C 85 20 127/69 100 07/31/21 13:00 07/31/21 15:31 07/31/21 15:32 07/31/21 15:31 07/31/21 14:52 Pain Intensity Bilateral Abdomen: Pain Intensity: 0 Notes Mental Status: alert / awake / arousable Nausea / Vomiting: adequately controlled Pain: adequately controlled Airway Patency, RR, SpO2: stable & adequate BP & HR: stable & adequate Hydration State: stable & adequate Neuraxial Anesthesia: was administered and sensory block is resolving Anesthetic Complications: no major complications apparent Epidural: Removed without complications and With tip intact
[2021-07-31] MEDS ORDERED: METHYLERGONOVINE MALEATE 0.2 MG/ML AMP IM STA (17:58)
[2021-07-31] MEDS: IBUPROFEN 600 MG TAB PO PRN (19:57)
[2021-07-31] MEDS: DOCUSATE SODIUM 100 MG CAP PO SCH (21:11)
[2021-08-01] MEDS: IBUPROFEN 600 MG TAB PO PRN ×2 (03:47→09:50)
[2021-08-01 06:05] LABS: Hematocrit (blood only) 31.9 % (37-47); Hemoglobin 10.9 g/dL (12.0-16.0); Mean Corpuscular Hemoglobin 31.3 pg (25-34); Mean Corpuscular Hgb Conc 34.2 g/dL (32-36); Mean Corpuscular Volume 91.7 fL (80-100); Mean Platelet Volume 10.6 fL (7.4-10.4); Platelet Count 263 K/uL (130-400); RDW Coefficient of Variation 14.2 % (11.5-14.5); RDW Standard Deviation 47.3 fL (36.4-46.3); Red Blood Count 3.48 M/uL (4.2-5.4); White Blood Count 11.59 K/uL (4.8-10.8)
[2021-08-01] MEDS ORDERED: LEVOTHYROXINE SODIUM 88 MCG TABLET PO SCH (06:30)
--- NOTE | 2021-08-01 07:20 | Obstetrical Progress Note ---
Date of Service August 01, 2021 Assessment & Plan (1) Encounter for care and examination after delivery: Plan: Patient is a 35-year-old now female status post normal spontaneous vaginal delivery, day 1. complicated by hypothyroidism. -Continue routine care, discharge today after 24-hour stay discharge instructions reviewed -GBS negative, A+, antibody negative, rubella immune -Hemoglobin 10.9 -Encouraged ambulation -Continue bottlefeeding - follow-up with Dr. Jung in 6 weeks Admission and Anticipated Discharge Date Admission Date: July 31, 2021 Supervising Physician Co-Signing Physician Notes Resident Physician Supervision Note: I was present with Dr. Briseno during the history and exam. I discussed the case with the resident and agree with the findings and plan as documented in the note. Any exceptions or clarifications are listed here: PP1 s/p , doing well. Stable for d/c home today Documented By: Kemi Jung MD Subjective Patient is a 35-year-old now female status post normal spontaneous vaginal delivery, day 1. complicated by hypothyroidism. Patient overall doing well today. Patient ambulating in voiding appropriately. Patient passing gas but no bowel movement as of yet. Patient eating and drinking without difficulty. Lochia improving and moderate. Patient is bottlefeeding baby without difficulty. Pain is controlled. Patient denies fever, chills, chest pain, shortness of breath, UTI symptoms, or headache at this time. Patient has no other complaints at this time and would like to go home when able. Review of Systems Review of Systems: All systems reviewed & are unremarkable except as noted in HPI & below Physical Exam Constitutional: WD/WN, vitals as above Eyes: + anicteric sclerae Neck: normal visual inspection Respiratory: normal respiratory effort, lungs clear to auscultation Cardiovascular: RRR, no murmur, no edema Gastrointestinal (Abdomen): normal bowel sounds, soft, nontender, no hepatosplenomegaly Musculoskeletal: Head/Neck/Chest: normocephalic and head atraumatic Skin: no rashes, warm and dry Neurologic: moves all extremities Psychiatric: A+Ox3, euthymic affect Genitourinary: Uterus fundus palpated 1 cm below the umbilicus, firm Results & Data ([facility]) Vital Signs (Past 12 Hours) Vital Signs Temp Pulse Pulse Resp BP BP Pulse Ox 08/01/21 03:45 36.8 C 67 16 100/62 98 07/31/21 23:15 36.4 C L 69 16 120/80 98 07/31/21 19:05 37.2 C 93 H 16 133/81 07/31/21 18:46 85 114/61 07/31/21 18:31 96 H 110/61
[2021-08-01] MEDS: DOCUSATE SODIUM 100 MG CAP PO SCH (07:48)
[2021-08-01] MEDS ORDERED: PRENATAL VITAMIN 1 TAB PO SCH (08:00)
== END 2021-08-01 14:05 | disposition home or self-care (01) | DRG 807 ==
LOC: OPB 09:20 → 4S1 09:23 → 4E2 19:05